=== PATIENT | male | born 1960 | race Two or more races ===

== ENCOUNTER 2024-08-07 09:31 | Emergency (ER) | payer OTHER ==
[~2024-08-07] VITALS: Ht 170.2 cm; Wt 91.6 kg
[~2024-08-07 09:31] MED LIST: ADULT LOW DOSE81 M1; COZAAR50 MG
[2024-08-07] MEDS ORDERED: GUAIFENESIN/DEXTROMETHORPHAN 10ML BLIST.PACK PO ONE ×2 (10:45→10:53)
[2024-08-07 12:07] LABS: HEMATOCRIT 46.4 % (39.0-48.0); HEMOGLOBIN 16.4 g/dL (13-16.00); MEAN CELL VOLUME 92.5 fL (80.0-100.00); MEAN CORPUSCULAR HEMOGLOBIN 32.7 pg (27.00-32.0); MEAN CORPUSCULAR HGB CONC 35.4 g/dl (32.0-36.0); PLATELET COUNT 211 K/uL (150-450); RED BLOOD COUNT 5.02 M/uL (4.00-6.00)
[2024-08-07 12:21] LABS: ALBUMIN 3.4 gm/dL (3.4-5.0); BILIRUBIN TOTAL 0.68 mg/dL (0.3-1.2); CREATININE SERUM 1.02 mg/dL (0.70-1.30); GFR 73.76; GLOBULINA 3.8 G/DL (2.4-3.5); POTASSIUM 4.3 mEq/L (3.5-5.1); TOTAL PROTEIN 7.2 gm/dL (6.4-8.2)
[2024-08-07] MEDS ORDERED: AZITHROMYCIN 500 MG TABLET PO ONE (14:15)
== END 2024-08-07 14:21 | disposition home or self-care (01) ==
LOC: ER 09:33
PROVIDERS: Emergency Medicine
DX: B34.9 Viral infection, unspecified (principal); J40 Bronchitis, not specified as acute or chronic; Z20.822 Contact with and (suspected) exposure to COVID-19; I10 Essential (primary) hypertension